=== PATIENT | male | born 1960 | race Caucasian/White ===

== ENCOUNTER → 2017-03-12 | Outpatient (CLI) | payer OTHER ==
--- NOTE | 2017-03-12 10:07 | US ---
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 MRI at outside facility resulte d in AAA, assess today, no symptoms per patient EXAM MEASUREMENTS: Abdominal Aorta: Proximal: 2.3 x 1.9cm Mid: 1.9 x 2.2cm Distal: 3.4 x 4.1cm Bifurcation: RT = 1.5cm LT = 0.8 Obvious dilation of dist aorta, infrarenal, with largest measurement = 4.1cm IMPRESSION: 4.1 CM INFRARENAL ABDOMINAL AORTIC ANEURYSM.
== END | disposition home or self-care (01) ==
LOC: RADUSWWP 09:21
PROVIDERS: ATTEND Family Medicine
DX: I71.4 Abdominal aortic aneurysm, without rupture (principal)
CPT/HCPCS: 93979

== ENCOUNTER → 2018-01-30 | Outpatient (CLI) | payer OTHER ==
[~2018-01-30] MED LIST: REGADENOSON 0.4 MG/5 ML SYRINGE IV ONE
--- NOTE | 2018-01-30 12:14 | NM ---
EXAMINATION TYPE: NM stress lexiscan cardiolite DATE OF EXAM: 01/30/2018 COMPARISON: NONE HISTORY: Atherosclerotic heart disease per order. Personal history of tobacco use, hypercholesteremia , 4 vessel CABG procedure, and family history of heart attack presents with difficulty breathing and fatigue per patient. TECHNIQUE: After the intravenous administration of 10.18 mCi Tc 99m Sestamibi - Cardiolite resting S PECT images acquired 45 minutes post injection. The patient received 0.4mg Lexiscan, 26.3 mCi Tc 99m Sestamibi - Stress images obtained [address] injection FINDINGS: Review of stress and rest SPECT images demonstrates no distinct perfusion abnormality. Gated analysi s shows normal wall motion with an estimated left ventricular ejection fraction of 64 %. IMPRESSION: No scintigraphic evidence for reversible ischemia.
--- NOTE | 2018-01-30 18:59 | CE ---
CARDIAC ELECTROPHYSIOLOGY REPORT A 57-year-old male patient with fatigue. Lexiscan stress test was ordered. Baseline heart rate 59 beats per minute. Baseline blood pressure 123/76 mmHg. Baseline 12-lead EKG note showed normal sinus rhythm with normal cardiac intervals and the patient received Lexiscan infusion per protocol. Heart rate and blood pressure remained stable. There was no ECG evidence for ischemia. No arrhythmias were noted. Nuclear portion will be reported separately. MMODL / IJN: [id number] /
== END | disposition home or self-care (01) ==
LOC: RADNMMAIN 08:54
PROVIDERS: ATTEND Internal Medicine
DX: I25.10 Atherosclerotic heart disease of native coronary artery without angina pectoris (principal)
CPT/HCPCS: 93017; 78452; A9500; J2785

== ENCOUNTER → 2020-04-12 | Outpatient (CLI) | payer OTHER ==
--- NOTE | 2020-04-12 12:59 | CT ---
"EXAMINATION TYPE: CT abdomen pelvis wo/w con DATE OF EXAM: 04/12/2020 COMPARISON: Ultrasound 03/12/2017 HISTORY: gallbladder issues, history of AAA CT DLP: 1341 mGycm Automated exposure control for dose reduction was used. TECHNIQUE: Helical acquisition of images was performed from the lung bases through the pelvis. CONTRAST: Performed with Oral Contrast and without and with IV Contrast, patient injected with 100 mL of Isovue 300. FINDINGS: Infrarenal abdominal aortic aneurysm now measures approximately 5.8 cm in greatest AP dimen desiree and extends into the right common iliac artery which measures 2.1 cm, the proximal left common i liac artery measures 1.7 cm. There is wall calcification and luminal plaque. There are some coronary artery calcifications. Common femoral artery on the left measures approximately 2 cm in AP dimension and on the right 2.2 cm LUNG BASES: Some interstitial changes are present with honeycombing and subpleural bands, interlobula r septal pleural thickening, no pleural or pericardial effusion. LIVER/GB: No significant abnormality is appreciated. PANCREAS: No significant abnormality is seen. SPLEEN: No significant abnormality is seen. ADRENALS: No significant abnormality is seen. KIDNEYS: Nonobstructive calcifications are present bilaterally within the kidneys, at least 3 calcifi cations present on the right, 3 on the left, largest calcification in the lower pole and the left crow sures approximately 4 to 5 mm. FREE AIR: No free air is visualized. RETROPERITONEAL ADENOPATHY: None visualized REPRODUCTIVE ORGANS: Prostate shows a transverse dimension of approximately 4.2 cm URINARY BLADDER: Bladder wall is thickened PELVIC ADENOPATHY: None visualized. OSSEOUS STRUCTURES: Degenerative disc changes are present in the visualized spine. There may be spin al stenosis at L5-S1 BOWEL: Some diverticular change noted in the sigmoid colon OTHER: IMPRESSION: INFRARENAL ABDOMINAL AORTIC ANEURYSM. THERE IS ANEURYSMAL DISEASE IN THE MORE PERIPHERAL VASCULATURE DESCRIBED. DIVERTICULOSIS. THICKENING IN THE URINARY BLADDER WALL, CORRELATE FOR POSSIBLE CHRONIC BLADDER OUTLET OBSTRUCTION, CYSTITIS. BILATERAL NONOBSTRUCTIVE NEPHROLITHIASIS. DEGENERATIVE DISC DIS EASE AND SPINAL STENOSIS. A Yellow level critical message alert has been initiated for RIKY Da Silva via the [employer] | Critical Results System on 04/12/2020 12:57 PM. This message alert has been sent to RIKY Da Silva via the preferences provided by the clinician for the receipt of Ivan Miller. Message ID [id number]."
== END | disposition home or self-care (01) ==
LOC: RADCTMAIN 09:17
DX: I71.4 Abdominal aortic aneurysm, without rupture (principal); K57.90 Diverticulosis of intestine, part unspecified, without perforation or abscess without bleeding; N32.89 Other specified disorders of bladder; N20.0 Calculus of kidney
CPT/HCPCS: 74178; Q9967

== ENCOUNTER → 2022-07-12 | Outpatient (CLI) | payer OTHER ==
--- NOTE | 2022-07-12 09:58 | CTL ---
EXAMINATION TYPE: CT Low Dose Lung DATE OF EXAM ORDERED: 07/12/2022 HISTORY: Z87.891 Personal hx tobacco use/nicotine dependence. Lung cancer screening CT DLP: [address] CTDI: 2.2 mGy Automated exposure control for dose reduction was used. SCREENING VISIT: First screening visit. COMPARISON: No direct comparisons. TECHNIQUE: Low dose computed tomography scan was performed through the chest at 1 mm thick sections a nd reconstructed images in multiple planes at 1 mm and [address] DIAGNOSTIC QUALITY: Satisfactory FINDINGS: LUNG NODULES: No pulmonary nodules greater than 5 mm in size. LUNGS: COPD: Severity: Moderate with centrilobular and paraseptal emphysematous changes most prominent in th e bilateral upper lobes Fibrosis: Severity: Mild with bilateral lower lobe honeycombing. Lymph nodes: None Other findings: None RIGHT PLEURAL SPACE: Effusion: None Calcification: None Thickening: None Pneumothorax: None LEFT PLEURAL SPACE: Effusion: None Calcification: None Thickening: None Pneumothorax: None HEART: Heart Size: Normal Coronary Calcification: Post-CABG changes. Pericardial Effusion: None OTHER FINDINGS: Upper abdomen: Partial visualization of abdominal aortic stent graft. Nonobstructive bilateral renal calculi. Bony thorax: No acute osseous abnormality. Median sternotomy wires. Supraclavicular region: None Other: Mild bilateral gynecomastia. IMPRESSION: 1. No concerning nodules. 2. Mild to moderate emphysematous and fibrotic changes. CT LUNG RAD AND CT CHEST RECOMMENDATION: Lung-Rad 1 Negative: Continue annual screening with LDCT in 12 months. S Modifier (other clinically significant findings): None
== END | disposition home or self-care (01) ==
LOC: RADCTMAIN 09:12
DX: Z12.2 Encounter for screening for malignant neoplasm of respiratory organs (principal); J43.9 Emphysema, unspecified; J84.10 Pulmonary fibrosis, unspecified; Z87.891 Personal history of nicotine dependence
CPT/HCPCS: 71271

== ENCOUNTER 2023-01-05 12:46 | Emergency (ER) | payer OTHER ==
[2023-01-05] MEDS ORDERED: ACETAMINOPHEN TAB 325 MG TAB PO STA (13:02)
[2023-01-05] MEDS ORDERED: IBUPROFEN 600 MG TAB PO STA (13:02)
[2023-01-05] MEDS ORDERED: DIPH,PERTUS(ACELL)TETVAC-LF 0.5 ML VIAL IM ONE (13:03)
[2023-01-05] MEDS ORDERED: LIDOCAINE 1% INJ 10MG/ML (30 ML VIAL-PF) SQ ONE (13:03)
--- NOTE | 2023-01-05 13:12 | ED ---
General Adult HPI - General Chief complaint: Wound/Laceration Stated complaint: Cut L hand Time Seen by Provider: 01/05/23 12:56 Source: patient, RN notes reviewed Mode of arrival: ambulatory Limitations: no limitations - History of Present Illness Initial comments: 62-year-old male with no significant past medical history presents to the emergency department with a chief complaint of left hand laceration. Patient reports he cut his hand with a box stamper approximately one half hour prior to arrival. He denies any numbness or tingling or weakness to the extremity. He is able to move his thumb. He has not taken anything for his symptoms. He is unsure when his last tetanus vaccination was. - Related Data Home Medications Medication Instructions Recorded Confirmed Acetaminophen [Tylenol] 325 mg PO Q4H PRN 10/29/22 12/06/22 Aspirin [Adult Low Dose Aspirin EC] 81 mg PO DAILY 10/29/22 12/06/22 Ezetimibe [Zetia] 10 mg PO DAILY 10/29/22 12/06/22 Levothyroxine Sodium [Synthroid] 50 mcg PO DAILY 10/29/22 12/06/22 Metoprolol Succinate [Metoprolol 12.5 mg PO DAILY 10/29/22 12/06/22 Succinate ER] Naproxen Sodium [Aleve] 220 mg PO DAILY PRN 10/29/22 12/06/22 Omeprazole 20 mg PO DAILY 10/29/22 12/06/22 Rosuvastatin [Crestor] 40 mg PO DAILY 10/29/22 12/06/22 Allergies Allergy/AdvReac Type Severity Reaction Status Date / Time No Known Allergies Allergy Unverified 12/06/22 16:48 Review of Systems ROS Statement: Those systems with pertinent positive or pertinent negative responses have been documented in the HPI. ROS Other: All systems not noted in ROS Statement are negative. Past Medical History Past Medical History: Chest Pain / Angina, GERD/Reflux, Myocardial Infarction (NE), Osteoarthritis (OA), Sleep Apnea/CPAP/BIPAP, Thyroid Disorder Additional Past Medical History / Comment(s): aneurysm-aortic and femoral, stents to aorta and thigh, no cpap having testing done in november 2022 History of Any Multi-Drug Resistant Organisms: None Reported Past Surgical History: Coronary Bypass/CABG, Heart Catheterization With Stent, Orthopedic Surgery Additional Past Surgical History / Comment(s): cabg 15 yrs ago 4 vessel, shoulder tendon reattachment, metal plate left arm Past Anesthesia/Blood Transfusion Reactions: No Reported Reaction, Family Hisory of Malignant Hyperthermia Past Psychological History: Anxiety Smoking Status: Current some day smoker Past Alcohol Use History: None Reported Past Drug Use History: Marijuana - Past Family History Sister(s) Family Medical History: Cancer Additional Family Medical History / Comment(s): had bone marrow transplant unsure of type General Exam Limitations: no limitations General appearance: alert, in no apparent distress Head exam: Present: atraumatic, normocephalic, normal inspection Eye exam: Present: normal appearance, PERRL, EOMI. Absent: scleral icterus, conjunctival injection, periorbital swelling ENT exam: Present: normal exam, mucous membranes moist Neck exam: Present: normal inspection. Absent: tenderness, meningismus, lymphadenopathy Respiratory exam: Present: normal lung sounds bilaterally. Absent: respiratory distress, wheezes, rales, rhonchi, stridor Cardiovascular Exam: Present: regular rate, normal rhythm, normal heart sounds. Absent: systolic murmur, diastolic murmur, rubs, gallop, clicks GI/Abdominal exam: Present: soft, normal bowel sounds. Absent: distended, tenderness, guarding, rebound, rigid Extremities exam: Present: normal inspection, full ROM, normal capillary refill. Absent: tenderness, pedal edema, joint swelling, calf tenderness Left Hand Wrist exam: Present: normal inspection, full ROM Hand L/R Back: 1 - 2cm laceration to first digit webspace base. Without active bleeding or crepitus. Full range of motion, 5/5 strength. 2+ radial pulses distal NVI remains intact Back exam: Present: normal inspection Neurological exam: Present: alert, oriented X3, CN II-XII intact Psychiatric exam: Present: normal affect, normal mood Skin exam: Present: warm, dry, intact, normal color. Absent: rash Course Vital Signs 01/05/23 01/05/23 12:52 13:53 Temperature 97.9 F 97.8 F Pulse Rate 80 67 Respiratory 20 17 Rate Blood Pressure 145/9 132/91 O2 Sat by Pulse 97 96 Oximetry Procedures - Laceration Laceration #1 Indication: laceration Site: other (L hand ) Description: linear Depth: simple, single layer Anesthetic Used: lidocaine 1% Anesthesia Technique: local infiltration Pre-repair: wound explored, irrigated extensively Type of Sutures: vicryl Size of Sutures: 5-0 Number of Sutures: 5 Technique: simple, interrupted Complications: pain, bleeding, nerve injury, allergic reaction, hypoxia Patient Tolerated Procedure: well, no complications, other (Distal NVI intact post suture placement ) Medical Decision Making - Medical Decision Making Was pt. sent in by a medical professional or institution (, [facility], [facility], urgent care, hospital, or longterm...) When possible be specific @ -[No] Did you speak to anyone other than the patient for history (EMS, parent, family, police, friend...)? What history was obtained from this source @ -[No] Did you review nursing and triage notes (agree or disagree)? Why? @ -[I reviewed and agree with nursing and triage notes] Were old charts reviewed (outside hosp., previous admission, EMS record, old EKG, old radiological studies, urgent care reports/EKG's, longterm records)? Report findings @ -[No old charts were reviewed] Differential Diagnosis (chest pain, altered mental status, abdominal pain women, abdominal pain men, vaginal bleeding, weakness, fever, dyspnea, syncope, headache, dizziness, GI bleed, back pain, seizure, CVA, palpatations, mental health, musculoskeletal)? @ -[not applicable] EKG interpreted by me (3pts min.). @ -[As above] X-rays interpreted by me (1pt min.). @ -[None done] CT interpreted by me (1pt min.). @ -[None done] U/S interpreted by me (1pt. min.). @ -[None done] What testing was considered but not performed or refused? (CT, X-rays, U/S, labs)? Why? @ -[None] What meds were considered but not given or refused? Why? @ -[None] Did you discuss the management of the patient with other professionals (professionals i.e. , PA, [facility]WA[facility], lab, RT, psych nurse, web content & social media manager, tax collection coordinator, teacher, electorate officer, case aide)? Give summary @ -[No] Was smoking cessation discussed for >3mins.? @ -[No] Was critical care preformed (if so, how long)? @ -[No] Were there social determinants of health that impacted care today? How? (Homelessness, low income, unemployed, alcoholism, drug addiction, transportation, low edu. Level, literacy, decrease access to med. care, alf, rehab)? @ -[No] Was there de-escalation of care discussed even if they declined (Discuss DNR or withdrawal of care, Hospice)? DNR status @ -[No] What co-morbidities impacted this encounter? (DM, HTN, Smoking, COPD, CAD, Cancer, CVA, ARF, Chemo, Hep., AIDS, mental health diagnosis, sleep apnea, morbid obesity)? @ -[None] Was patient admitted / discharged? Hospital course, mention meds given and route, prescriptions, significant lab abnormalities, going to OR and other pertinent info. @ -Discharged. This is a 62-year-old female who presents the emergency department with laceration. Patient had a thorough history and physical exam performed physical exam essentially unremarkable. Heart rate regular rate and rhythm, lungs clear to auscultation bilaterally abdomen is soft and nontender. 2cm Laceration to left 1st digit webspace distal NVI remains intact. Patient had 5 sutures placed for which he tolerated well. I discussed the results in detail with the patient verbalized understanding and all questions were addressed. Return precautions were discussed at length. Patient was discharged in stable condition. She was encouraged to follow up with her PCP in 1-2 days. Comes with GIULIA Perez who agrees with plan of care Undiagnosed new problem with uncertain prognosis? @ -[No] Drug Therapy requiring intensive monitoring for toxicity (Heparin, Nitro, Insulin, Cardizem)? @ -[No] Were any procedures done? @ -[No] Diagnosis/symptom? @ -laceration Acute, or Chronic, or Acute on Chronic? @ -acute Uncomplicated (without systemic symptoms) or Complicated (systemic symptoms)? @ -uncomplicated Side effects of treatment? @ -[No] Exacerbation, Progression, or Severe Exacerbation? @ -[No] Poses a threat to life or bodily function? How? (Chest pain, [place], NE, pneumonia, PE, COPD, DKA, ARF, appy, cholecystitis, CVA, Diverticulitis, Homicidal, Suicidal, threat to staff... and all critical care pts) @ -low likelihood Disposition Clinical Impression: Laceration Disposition: HOME SELF-CARE Condition: Stable Instructions (If sedation given, give patient instructions): Care For Your Stitches (DC), Laceration (ED) Additional Instructions: Please return to urgent care or primary care doctor or emergency room department for suture removal in 7-10 days Is patient prescribed a controlled substance at d/c from ED?: No Referrals: [facility],Clinic [Primary Care Provider] - 1-2 days Time of Disposition: 14:00
[2023-01-05 13:53] VITALS: BP 132/91; PULSE 67; RESP 17; TEMP 97.8
== END 2023-01-05 14:14 | disposition home or self-care (01) ==
LOC: EC 12:46
DX: S61.412A Laceration without foreign body of left hand, initial encounter (principal); K21.9 Gastro-esophageal reflux disease without esophagitis; I25.2 Old myocardial infarction; G47.30 Sleep apnea, unspecified; E07.9 Disorder of thyroid, unspecified; M19.90 Unspecified osteoarthritis, unspecified site; F41.9 Anxiety disorder, unspecified; F17.200 Nicotine dependence, unspecified, uncomplicated; F12.90 Cannabis use, unspecified, uncomplicated; Z79.82 Long term (current) use of aspirin; Z79.1 Long term (current) use of non-steroidal anti-inflammatories (NSAID); Z79.890 Hormone replacement therapy; Z79.899 Other long term (current) drug therapy; Z23 Encounter for immunization; W26.0XXA Contact with knife, initial encounter
CPT/HCPCS: 90715; 99282; 90471; 12001; J2001

== ENCOUNTER 2023-01-22 08:51 | Day surgery (SDC) | payer OTHER ==
[2022-12-06 16:59] VITALS: BMI 23.6
[~2023-01-22 08:51] MED LIST changes: +LACTATED RINGERS 1,000 ML IV SCH; +LIDOCAINE 1% (10MG/ML) FOR IV START INTRADERMA PRN; -REGADENOSON 0.4 MG/5 ML SYRINGE IV ONE
[2023-01-22 09:23] VITALS: TEMP 97.5
[2023-01-22] MEDS ORDERED: PROPOFOL 10 MG/ML 20 ML VIAL IV ONE (09:40)
--- NOTE | 2023-01-22 10:02 | P.PCN ---
Date of Procedure: 01/22/23 Procedure(s) Performed: BRIEF HISTORY: Patient is a 62-year-old pleasant white male scheduled for an elective colonoscopy as a part of screening for colon cancer/history of colon polyps. His last colonoscopy was 4 years ago. PROCEDURE PERFORMED: Colonoscopy. PREOPERATIVE DIAGNOSIS: Screening for colon cancer/history of colon polyps. IV sedation per Anesthesia. PROCEDURE: After informed consent was obtained, the patient, was brought into the endoscopy unit. IV sedation was administered by Anesthesia under continuous monitoring. Digital rectal examination was normal. Initially the Olympus CF-160 flexible video colonoscope was then inserted in the rectum, gradually advanced into the cecum without any difficulty. Careful examination was performed as the scope was gradually being withdrawn. Ileocecal valve and the appendiceal orifice were visualized and appeared normal. Prep was good.. Mucosa of the cecum, ascending colon, transverse colon, descending colon, sigmoid colon, and rectum appeared normal. Scattered sigmoid diverticulosis. Retroflexion was performed in the rectum and no lesions were seen. Scattered sigmoid diverticulosis The patient tolerated the procedure well. IMPRESSION: Normal-appearing colon from rectum to cecum with no evidence of colorectal neoplasia . Scattered sigmoid diverticulosis. RECOMMENDATIONS: Findings of this examination were discussed with the patient as well as his family. He was advised to have a repeat screening colonoscopy in 10 years..
[2023-01-22 10:05] VITALS: PULSE 61
[2023-01-22 10:36] VITALS: BP 125/81; RESP 18
== END 2023-01-22 10:41 | disposition home or self-care (01) ==
LOC: ORWHC2ENDO 08:51
PROVIDERS: ATTEND Internal Medicine Gastroenterology
DX: Z12.11 Encounter for screening for malignant neoplasm of colon (principal); K57.30 Diverticulosis of large intestine without perforation or abscess without bleeding; I25.10 Atherosclerotic heart disease of native coronary artery without angina pectoris; G47.33 Obstructive sleep apnea (adult) (pediatric); I71.40 Abdominal aortic aneurysm, without rupture, unspecified; K21.9 Gastro-esophageal reflux disease without esophagitis; Z79.82 Long term (current) use of aspirin; Z79.899 Other long term (current) drug therapy; Z95.1 Presence of aortocoronary bypass graft; Z98.890 Other specified postprocedural states; Z86.010 Personal history of colon polyps
CPT/HCPCS: 45378; J2704

== ENCOUNTER → 2023-07-04 | Outpatient (CLI) | payer OTHER ==
--- NOTE | 2023-07-04 12:53 | CTL ---
EXAMINATION TYPE: CT Low Dose Lung DATE OF EXAM ORDERED: 07/04/2023 COMPARISON: 07/12/2022 HISTORY: . Low Dose CT Lung Screening CT DLP: [address] CTDI: 1.72 mGy IV CONTRAST USED: None. SCREENING VISIT: Second TECHNIQUE: Low dose computed tomography scan was performed through the chest at 1 millimeter thick se ctions and reconstructed images in the coronal plane at [address] DIAGNOSTIC QUALITY: Satisfactory FINDINGS: LUNG NODULES: No nodules visualized greater than 5 mm in size. LUNGS: COPD: Severity: Mild to moderate Fibrosis: Severity: Mild to moderate Lymph nodes: None Other findings: None RIGHT PLEURAL SPACE: Effusion: None Calcification: None Thickening: None Pneumothorax: None LEFT PLEURAL SPACE: Effusion: None Calcification: None Thickening: None Pneumothorax: None HEART: Heart Size: Mildly enlarged Coronary calcification: Mild Pericardial effusion: None OTHER FINDINGS: Upper abdomen: No significant abnormality Bony thorax: Degenerative changes Supraclavicular region: No significant abnormalityOther: No significant abnormalityI IMPRESSION: 1. No concerning pulmonary nodules identified at this time. FOLLOW UP CT CHEST RECOMMENDATION: Follow-up screening in one year CT LUNG RAD: LUNG RAD CATEGORY 1. Negative
== END | disposition home or self-care (01) ==
LOC: RADCTMAIN 11:46
DX: Z12.2 Encounter for screening for malignant neoplasm of respiratory organs (principal); F17.210 Nicotine dependence, cigarettes, uncomplicated
CPT/HCPCS: 71271

== ENCOUNTER → 2024-07-29 | Outpatient (CLI) | payer OTHER ==
--- NOTE | 2024-07-29 11:17 | CTL ---
EXAMINATION TYPE: CT Low Dose Lung DATE OF EXAM ORDERED: 07/29/2024 COMPARISON: CT low-dose lung 07/04/2023, 07/12/2022 CLINICAL INDICATION: Male, 63 years old with history of Z12.2 Screening F17.210 Nicotine dependence; PHH, personal tobacco use, Lung cancer screening, History of Smoking/tobacco use. TECHNIQUE: Low dose computed tomography scan was performed through the chest at 1 mm thick sections a nd reconstructed images in multiple planes at 1 mm and [address] DLP: 77.[address] CTDI: 2.0 mGy Automated exposure control for dose reduction was used. CT DIAGNOSTIC QUALITY: Satisfactory FINDINGS: Nodules: No clinically significant pulmonary nodules. LUNGS: COPD: Severity: Moderate Fibrosis: Severity: Mild to moderate Lymph nodes: None Other findings: None RIGHT PLEURAL SPACE: Effusion: None Calcification: None Thickening: None Pneumothorax: None LEFT PLEURAL SPACE: Effusion: None Calcification: None Thickening: None Pneumothorax: None HEART: Heart Size: Normal Coronary Calcification: Post-CABG changes. Pericardial Effusion: None OTHER FINDINGS: Upper abdomen: Partial visualization of abdominal aortic stent graft. Punctate nonobstructive bilater al renal calculi. Bony thorax: Median sternotomy wires. Supraclavicular region: None Other: Mild bilateral gynecomastia. IMPRESSION: 1. No clinically significant pulmonary nodule. 2. Nuza-[id number]-[id number] emphysematous and pulmonary fibrotic changes. CT LUNG RAD AND CT CHEST RECOMMENDATION: Lung-Rad 1 Negative: Continue annual screening with LDCT in 12 months. S Modifier (other clinically significant findings): None [facility], , 07/29/2024 11:14 AM
== END | disposition home or self-care (01) ==
LOC: RADCTMAIN 10:10
PROVIDERS: ATTEND Family Medicine
DX: Z12.2 Encounter for screening for malignant neoplasm of respiratory organs (principal); J44.9 Chronic obstructive pulmonary disease, unspecified; J84.10 Pulmonary fibrosis, unspecified; N20.0 Calculus of kidney; N62 Hypertrophy of breast; F17.210 Nicotine dependence, cigarettes, uncomplicated
CPT/HCPCS: 71271